=== PATIENT | female | born 1955 | race Caucasian/White ===

== ENCOUNTER → 2018-10-14 | Outpatient (CLI) | payer OTHER ==
[~2018-10-14] MED LIST: ALBU90OI INH; BENAML10/2 PO; BENZ100A PO; BUPR150ER PO; CARV25; CITA20; Cheratussin AC118 ML PO; IBUP600 PO; LISHYD2025; LOVA40; MELA3; METO100ER PO; Prilosec Otc20 MG; RXHYDACE PO
[2018-10-14 16:49] LABS: Source, Urine Clean Catch
[2018-10-14 19:24] LABS: Appearance, Urine Clear (Clear); Bilirubin, Urine Neg (Neg); Blood, Urine Neg (Neg); Color, Urine Yellow (P-Yellow); Glucose Qualitative, Urine Neg (Neg); Ketones, Urine Neg (Neg); Leukocyte Esterase, Urine 3+ (Neg); Nitrite, Urine Neg (Neg); Protein, Urine Neg (Neg); Specific Gravity, Urine 1.005 (1.003-1.022); Urobilinogen, Urine NORM (Normal); pH, Urine 6.5 (5.0-8.0)
[2018-10-14 19:27] LABS: Bacteria Mod /hpf; Red Blood Cells, Urine 0-2 /hpf (0-2); Squamous Epithelial Cells Few /hpf (Few); Transitional Epithelial Cells Few /hpf ({null, 0-Rare})
== END ==
LOC: LAB 16:46 → LAB SHORT 16:46
PROVIDERS: Internal Medicine
DX: N18.3 Chronic kidney disease, stage 3 (moderate) (principal)
CPT/HCPCS: 81001; 87086

== ENCOUNTER → 2019-12-17 | Outpatient (CLI) | payer OTHER ==
[2019-12-17 12:59] LABS: Appearance, Urine Hazy (Clear); Bilirubin, Urine Neg (Neg); Blood, Urine 2+ (Neg); Color, Urine Yellow (P-Yellow); Glucose Qualitative, Urine Neg (Neg); Ketones, Urine Neg (Neg); Leukocyte Esterase, Urine 3+ (Neg); Nitrite, Urine Pos (Neg); Protein, Urine 1+ (Neg); Specific Gravity, Urine 1.015 (1.003-1.022); Urobilinogen, Urine NORM (Normal)
[2019-12-17 13:09] LABS: White Blood Cells, Urine TNTC /hpf (0-5)
[2019-12-17 13:10] LABS: Bacteria Many /hpf; Squamous Epithelial Cells Mod /hpf (Few); Transitional Epithelial Cells Few /hpf (0-Rare)
[2019-12-17 15:58] LABS: Protein, Urine Random 20.9 mg/dL (0.0-11.9); Protein/Creat Ratio, Ur Random 0.2
== END | disposition home or self-care (01) ==
LOC: LAB 10:37 → LAB SHORT 10:37 → LAB FUT 12-15 11:45
PROVIDERS: Internal Medicine
DX: N18.30 Chronic kidney disease, stage 3 unspecified (principal)
CPT/HCPCS: 81001; 82570; 84156

== ENCOUNTER → 2021-06-13 | Outpatient (CLI) | payer OTHER | END | disposition home or self-care (01) | LOC: PLD 11:13 → LAB SHORT 11:13 | DX: D48.5 Neoplasm of uncertain behavior of skin (principal) | CPT/HCPCS: 88305 ==

== ENCOUNTER → 2024-04-10 | Outpatient (CLI) | payer OTHER ==
[2024-04-10 14:25] LABS: Creatinine, Urine Random 38.1 mg/dL (27.00-270.00)
[2024-04-10 15:10] LABS: Microalb/Creat Ratio UR, Rand 28.084 mg/g (0.000-30.000); Microalbumin, Random Urine 10.7 mg/L (0.000-20.000)
== END ==
LOC: LAB SHORT 11:09 → LAB 11:09
PROVIDERS: Hospitalist
DX: R35.0 Frequency of micturition (principal)
CPT/HCPCS: 82043; 82570